=== PATIENT | female | born 1975 | race Caucasian/White ===

== ENCOUNTER → 2018-04-25 10:09 | Outpatient (CLI) | payer OTHER, SELFPAY ==
--- NOTE | 2018-04-25 10:10 | DI.US.S_ITS ---
PROCEDURE: US FABIAN LIMITED SINGLE LEVEL INDICATIONS: INTERMITTENT SWELLING OF LEFT LOWER EXTREMITY TECHNIQUE: Ankle-brachial indices were obtained bilaterally and recorded. COMPARISONS: FINDINGS: Right ankle brachial index (FABIAN): 0.97 Left ankle brachial index (FABIAN): 0.97 IMPRESSION: One normal ABIs of the bilateral lower extremities. Dictated by: Kelly Connors M.D. on 04/25/2018 at 12:05 Approved by: Kelly Connors M.D. on 04/25/2018 at 12:06
--- NOTE | 2018-04-25 10:10 | DI.US.S_ITS ---
PROCEDURE: US ARTERIAL DUPLEX LE LT INDICATIONS: INTERMITTENT SWELLING OF LEFT LOWER EXTREMITY TECHNIQUE: Color and pulse Doppler interrogation was performed of the left lower extremity arterial system, with image documentation. COMPARISON: None. FINDINGS: Common femoral artery: 143 cm/sec, with triphasic flow. Deep femoral artery: 91 cm/sec, with triphasic flow. Proximal superficial femoral artery: 98 cm/sec, with triphasic flow. Mid superficial femoral artery: 109 cm/sec, with triphasic flow. Distal superficial femoral artery: 93 cm/sec, with triphasic flow. Popliteal artery: 53 cm/sec, with triphasic flow. Posterior tibial artery: 52 cm/sec, with triphasic flow. Anterior tibial artery/dorsalis pedis: 67 cm/sec, with triphasic flow. Castillo-scale imaging description: No atheromatous plaque or hemodynamically significant stenosis. IMPRESSION: No hemodynamically significant stenosis of the left lower extremity arteries. No findings to explain intermittent swelling. Dictated by: Kelly Connors M.D. on 04/25/2018 at 12:03 Approved by: Kelly Connors M.D. on 04/25/2018 at 12:05
--- NOTE | 2018-04-25 10:10 | DI.US.S_ITS ---
PROCEDURE: US PERIPH VENOUS LOW EXTREM LT INDICATIONS: INTERMITTENT SWELLING OF LEFT LOWER EXTREMITY TECHNIQUE: Real-time imaging, as well as color and pulse Doppler interrogation, were performed of the lower extremity deep veins from the inguinal ligament to the popliteal fossa. COMPARISON: None. FINDINGS: The deep veins are normally compressible, and free of intraluminal thrombus. Color and pulse Doppler demonstrate normal phasic intraluminal flow. There is normal augmentation response to distal compression maneuver. IMPRESSION: No DVT left lower extremity. Dictated by: Brandon Zapata M.D. on 04/25/2018 at 15:06 Approved by: Brandon Zapata M.D. on 04/25/2018 at 15:06
== END ==
PROVIDERS: PCP Nurse Practitioner Family; Visit Provider Nurse Practitioner Family
DX: M79.89 Other specified soft tissue disorders (principal)
CPT/HCPCS: 93922; 93926; 93971